=== PATIENT | female | born 1985 | race Caucasian/White ===

== ENCOUNTER 2020-08-29 21:56 | Emergency (ER) | payer BC, SELFPAY ==
[2020-08-29 22:17] VITALS: BP 146/110; PULSE 133; RESP 18; TEMP 36.3; O2SAT 99; BMI 29.7
[2020-08-29 22:46] VITALS: PULSE 62
[2020-08-29] MEDS: lidocaine 1% INJ 20 mL INJECTION (23:08)
[2020-08-29] MEDS: tetanus-dipt-pertussis 0.5 mL SDV IM (23:18)
--- NOTE | 2020-08-29 23:35 | XR_ITS ---
WS: [id number] Left hand, 3 views, 08/30/2020 Clinical Data: laceration Comparison: None. Findings: No fractures or dislocations are seen. The soft tissues are unremarkable. The joint spaces are normal XR/XR hand LT min 3V* [id number] Impression: Negative left hand.
--- NOTE | 2020-08-29 23:35 | W.ED.EXTPRO ---
HPI - Extremity Problem General: Chief complaint: Extremity Injury, Upper Stated complaint: lac on left hand Time Seen by Provider: 08/29/20 22:23 Source: patient Mode of arrival: ambulatory Limitations: no limitations History of Present Illness: HPI Narrative: 34-year-old female patient presents to the emergency department with laceration to the left hand. She reports climbing of a lan wire fence when her hand came in contact with lan wire. She has sustained several lacerations. MD Complaint: extremity pain Onset (ago): hour(s) (1-2) Pain Consistency: intermittent Location: left and upper extremity Severity scale (1-10): 5 Quality: stabbing and aching Radiation: none Associated symptoms: Reports no associated symptoms; Deny chest pain, fever(s) or rash Review of Systems General: Reports: 10 or more systems reviewed and unremarkable except in HPI and below Const: Denies: fever(s), chills or diaphoresis Eyes: Denies: blurry vision or eye redness ENMT: Denies: throat pain, dental pain or disequilibrium Card: Denies: chest pain, palpitations or irregular heart rhythm Resp: Denies: dyspnea, productive cough, non-productive cough or wheezing GI: Denies: abdominal pain, nausea or vomiting : Denies: difficulty voiding or dysuria Musc: Denies: back pain Skin/Breast: Reports: sores (Laceration); Denies: rash, pruritus, erythema, skin tenderness or changes in skin color Neuro: Denies: headache(s), weakness in extremities or behavioral changes Psych: Denies: anxiety, depression or sleeping more Rodney/Lymph: Denies: easy bruising PFS ED PFSH: Medical History Depression Hypertension Surgical History No pertinent past surgical history Family History Mother Stroke CAD (coronary artery disease) Diabetes Hypertension Family history of thyroid problem Father Hypertension Denies family history of Cancer Social History Smoking and tobacco status: never smoked Alcohol intake: former Former alcohol use details: Socially Female Reproductive History: Date of last menstrual period: 08/05/20 Physical Exam Const: COMMON NORMALS: no acute distress, patient oriented x3, healthy appearing and alert GENERAL APPEARANCE: cooperative, comfortable and well hydrated HENMT: COMMON NORMALS: normocephalic, Normal external nose present and moist oral mucous membranes HEAD & SCALP: normocephalic NOSE: Normal external nose present Eye: COMMON NORMALS: Equal, round and reactive pupils present and EOMs intact bilaterally GENERAL EYE: appearance normal, both eyes and all related structures PUPIL: Yes Equal, round and reactive pupils present Neck/C-Spine: COMMON NORMALS: full ROM and no lymphadenopathy GENERAL: Yes normal visual inspection and Yes trachea midline CERVICAL SPINE: Yes cervical ROM normal Lymph: LYMPHATIC: no lymphadenopathy noted Chest: COMMONS NORMALS: normal inspection of the chest Resp: COMMON NORMALS: normal respiratory effort and clear to auscultation bilaterally AUSCULTATION: clear to auscultation bilaterally Cardio: COMMON NORMALS: regular rhythm, S1 normal heart sound present and S2 normal heart sound present RHYTHM: regular rhythm HEART SOUNDS: S1 normal heart sound present and S2 normal heart sound present GI: COMMON NORMALS: Soft to palpation and non-tender INSPECTION: Yes normal to inspection PALPATION: Yes Soft to palpation : COMMON NORMALS: Yes no CVA tenderness BLADDER/KIDNEY EXAM: Yes no CVA tenderness Back/Pelvis: COMMON NORMALS: no CVA tenderness and thoracic and lumbar spine normal to inspection Extremity: COMMON NORMALS: normal to inspection, full ROM, capillary refill normal, no clubbing, cyanosis or edema, no calf tenderness and no pedal edema GENERAL: Yes normal exam except as noted Neuro: COMMON NORMALS: patient oriented x3 and no focal motor deficits SENSORIUM/ORIENTATION: Yes alert Psych: COMMON NORMALS: mental status grossly normal, Normal thought process present and cooperative ACTIVITY/MOTOR BEHAVIOR: Yes appropriate eye contact THOUGHT PROCESS: Normal thought process present Skin: COMMON NORMALS: no rashes or lesions noted and turgor normal SKIN IMAGES (FEMALE): 1. 1.5 cm rash to the palm of the hand, distal, adjacent third digit, involves subcu tissue, no foreign body appreciated GENERAL SKIN EXAM: no rashes or lesions noted and turgor normal TRAUMA: laceration (Third PIP, volar surface, proximal, 2 cm) stellate, puncture, involves subcutaneous tissue, involves muscle tissue, motor nerve function intact and sensation intact; not actively bleeding HAIR: normal NAILS: normal Procedures Laceration Laceration 1: Site: hand Side (If applicable): left Size (cm): 1.5 Description: linear Depth: simple, single layer Local Anesthetic: lidocaine 1% Amount of anesthesia used (mL): 4 Pre-repair: wound explored, irrigated extensively, deep structures intact and extensive debridement Skin layer closed with: nylon Size (cm): 4-0 Number of sutures: 3 Technique: simple, interrupted Laceration 2: Site: hand (Third digit, left hand) Side (If applicable): left Size (cm): 2 Description: stellate Depth: simple, single layer Local Anesthetic: lidocaine 1% Amount of anesthesia used (mL): 3 Pre-repair: wound explored, irrigated extensively, deep structures intact and extensive debridement Skin layer closed with: nylon Size (cm): 4-0 Number of sutures: 4 Technique: simple, interrupted Course Vital Signs: Vital signs: Vital Signs Temperature 97.3 F L 08/29/20 22:17 Pulse Rate 62 08/29/20 22:46 Respiratory Rate 18 08/29/20 22:17 Blood Pressure 146/110 08/29/20 22:17 Pulse Oximetry 99 08/29/20 22:17 MDM - Extremity (Nontraumatic) Imaging Data^: Xray Ortho: My impression: Left hand series without foreign body or visible fracture, radiology interpretation pending. Discharge Plan Discharge Patient Disposition: Home Clinical Impression: Laceration of hand Qualifiers: Encounter type: initial encounter Foreign body presence: without foreign body Laterality: left Qualified Code(s): S61.412A - Laceration without foreign body of left hand, initial encounter Laceration of finger Qualifiers: Encounter type: initial encounter Finger: middle finger Damage to nail status: without damage Foreign body presence: without foreign body Laterality: left Qualified Code(s): S61.213A - Laceration without foreign body of left middle finger without damage to nail, initial encounter Condition: Stable Prescriptions: New Keflex 500 mg capsule 500 mg PO TID 7 Days Qty: 21 RF: 0 No Action multivitamin Tablet 1 tab PO DAILY RF: 0 1.5/30 (28) 1.5 mg-30 mcg (21)/75 mg (7) tablet 1 tab PO ONCE Qty: 84 RF: 3 Discharge Orders: Discharge ED (Routine); Ordered 08/30/20 Ordered By: Belkys Hogue Referrals: Tommy Vee MD [Primary Care Provider] - Discharge Diet: Usual diet Discharge Activity: Limit activity as instructed Patient Instructions: Diphtheria/Acellular Pertussis/Tetanus Booster Vaccine (Tdap) (Injection), Suture Care (ED), Laceration (ED), Puncture Wound (ED), Opioid Safety Activity Restrictions/Additional Instructions: Sutures out in 7 days, monitor for signs and symptoms of infection, continue Keflex until all gone Keep wound covered for the first 24 hours, limit use of the left hand until sutures are removed, do not submerge sutures in water, may gently cleanse with soap and water and pat dry. If signs and symptoms of infection occur, return to the emergency department or follow-up with your primary care provider Stand Alone Forms: Work/School Release Coding Level of Care Code ED [employer] for [employer] Exam Comprehensive
[2020-08-29] MEDS: cephALEXin 500 mg Capsule PO (23:52)
[2020-08-30] MEDS: neomycin-poly-bacitracin oint 0.9 gm Pkt 1 APPLIC TOPICAL ×2 (01:01)
[2020-08-30 01:04] VITALS: BP 137/98; PULSE 87; RESP 17; O2SAT 100
== END 2020-08-30 01:04 | disposition home or self-care (01) ==
PROVIDERS: Emergency Provider Nurse Practitioner Family; PCP Family Medicine
DX: S61.412A Laceration without foreign body of left hand, initial encounter (principal); S61.213A Laceration without foreign body of left middle finger without damage to nail, initial encounter; I10 Essential (primary) hypertension; W26.8XXA Contact with other sharp object(s), not elsewhere classified, initial encounter; Z23 Encounter for immunization
CPT/HCPCS: 12002; 73130; 90471; 90715; 99283; A6446